=== PATIENT | female | born 1995 | race African-American/Black ===

== ENCOUNTER 2021-12-22 02:30 | Inpatient (IN) ==
[2021-12-22] MEDS: LACTATED RINGERS 1,000 ML IV SCH ×2 (03:00→16:00)
[2021-12-22] MEDS ORDERED: BUTORPHANOL 2 MG/ML VIAL IV PRN (03:15)
[2021-12-22] MEDS ORDERED: METHYLERGONOVINE 0.2 MG/1 ML AMP IM PRN (03:15)
[2021-12-22] MEDS ORDERED: miSOPROStoL 200 MCG TABLET RECTAL PRN (03:15)
[2021-12-22] MEDS ORDERED: TRANEXAMIC ACID 1,000 MG in SODIUM CHLORIDE 0.9% 100 ML IV PRN (03:15)
[2021-12-22] MEDS ORDERED: CARBOPROST TROMETHAMINE 250 MCG/ML AMP IM PRN (03:15)
[2021-12-22] MEDS ORDERED: OXYTOCIN/LR 20 UNIT/1,000 ML BAG IV SCH (03:30)
[2021-12-22] MEDS ORDERED: OXYTOCIN/LR 30 UNIT/1,000 ML BAG IV PRN (03:38)
[2021-12-22] MEDS ORDERED: AMPICILLIN INJ 2,000 MG in SODIUM CHLORIDE 0.9% 100 ML IV ONE ×2 (03:38→14:52)
[2021-12-22] MEDS ORDERED: ALUMINUM/MAGNES/SIMETH MAX STR 30 ML UDCUP PO PRN (04:20)
[2021-12-22 04:36] LABS: Basophils % 0.2 % (0.0-0.8); Eosinophils # 0.1 10*3/uL (0.0-0.87); Eosinophils % 0.5 % (0.00-10.9); Hematocrit 33.3 VOL% (35.7-47.0); Hemoglobin 10.8 GM/DL (12.0-16.0); Immature Granulocytes % 0.5 %; Immature Granulocytes Absolute 0.06 #; Lymphocytes % 16.1 % (21.3-54.2); Mean Corpuscular HGB Conc 32.4 GM/DL (32-36); Mean Corpuscular Volume 82.8 FL (87-102); Mean Platelet Volume 10.7 FL (9.6-12.0); Monocytes # 0.7 10*3/uL (0.11-0.8); Monocytes % 5.2 % (1.7-12.7); Neutrophils % 77.5 % (38.7-73.9); Platelet Count 182 T/CUMM (130-400); Red Blood Count 4.02 MC/CUMM (3.8-5.5); Red Cell Distribution Width 14.3 % (9.3-17.3); White Blood Count 12.5 T/CUMM (4-12)
[2021-12-22 04:54] LABS: Alanine Aminotransferase 17 U/L (13-56); Albumin 2.6 G/DL (3.4-5.0); Alkaline Phosphatase 104 U/L (45-117); Aspartate Amino Transferase 23 U/L (0-37); Bilirubin,Total < 0.39 MG/DL (0.20-1.00); Blood Urea Nitrogen 8 MG/DL (7-18); Calcium 9.5 MG/DL (8.5-10.1); Carbon Dioxide 22 MMOL/L (21-32); Chloride 108 MMOL/L (98-107); Estimated Glom Filtration Rate 180 ML/MIN; Glucose 84 MG/DL (74-106); Osmolality,Calculated 269.8 MOS/KG (273-304); Potassium 3.7 MMOL/L (3.5-5.1); Sodium 137 MMOL/L (136-145); Total Protein 7.1 G/DL (6.4-8.2)
[2021-12-22] MEDS ORDERED: BETAMETH SODIUM PHOS/ACETATE 30 MG/5 ML VIAL IM SCH (10:00)
[2021-12-22 11:35] LABS: HIV Antigen/Antibody Result Nonreactive (Nonreactive)
[2021-12-22] MEDS: AMPICILLIN INJ 1,000 MG in SODIUM CHLORIDE 0.9% 100 ML IV SCH ×2 (20:44→23:45)
[2021-12-22] MEDS: ONDANSETRON 4 MG/2 ML VIAL IV PRN (23:36)
[2021-12-22] MEDS: MEPERIDINE 50 MG/1 ML VIAL IV PRN (23:40)
[2021-12-23] MEDS: LACTATED RINGERS 1,000 ML IV SCH ×2 (01:24→07:16)
[2021-12-23] MEDS: AMPICILLIN INJ 1,000 MG in SODIUM CHLORIDE 0.9% 100 ML IV SCH ×4 (04:29→12:42)
[2021-12-23] MEDS ORDERED: BETAMETH SODIUM PHOS/ACETATE 30 MG/5 ML VIAL IM ONE (06:00)
[2021-12-23] MEDS ORDERED: OXYTOCIN/LR 20 UNIT/1,000 ML BAG IV SCH (09:00)
[2021-12-23] MEDS: ONDANSETRON 4 MG/2 ML VIAL IV PRN (12:32)
[2021-12-23] MEDS: MEPERIDINE 50 MG/1 ML VIAL IV PRN (12:36)
[2021-12-23] MEDS ORDERED: TRANEXAMIC ACID 1,000 MG/10 ML VIAL ONE (13:38)
[2021-12-23] MEDS ORDERED: miSOPROStoL 200 MCG TABLET ONE (13:38)
[2021-12-23] MEDS ORDERED: OXYTOCIN/LR 0 UNIT/0 ML BAG IV ONE (13:38)
[2021-12-23] MEDS ORDERED: SODIUM CHLORIDE 0.9% 0 ML IV ONE (13:38)
[2021-12-23] MEDS ORDERED: CARBOPROST TROMETHAMINE 250 MCG/ML AMP IM ONE (13:39)
[2021-12-23] MEDS ORDERED: METHYLERGONOVINE 0.2 MG/1 ML AMP ONE (13:39)
[2021-12-23] MEDS ORDERED: LIDOCAINE 1% 50 ML VIAL ONE (13:40)
[2021-12-23 14:59] LABS: Cord Venous Blood HCO3 21.2 MMOL/L; Cord Venous Blood PCO2 44.2 MMHG; Cord Venous Blood PO2 32.4 MMHG
[2021-12-23] MEDS ORDERED: HYDROCORTISONE 2.5% RECTAL CREAM 30 GM TUBE TOP PRN (18:15)
[2021-12-23] MEDS ORDERED: WITCH HAZEL PADS 100/JAR TOP PRN (18:15)
[2021-12-23] MEDS ORDERED: RHO(D) IMMUNE GLOBULIN 300 MCG SYRINGE IM ONE (18:15)
[2021-12-23] MEDS ORDERED: BISACODYL 10 MG SUPP RECTAL PRN (18:15)
[2021-12-23] MEDS ORDERED: DIPH/TET/ACEL PERT BOOSTER VACCINE 0.5 ML VIAL IM ONE (18:15)
[2021-12-23] MEDS ORDERED: BENZOCAINE 20%/MENTHOL 0.5% SPRAY 56 GM CAN TOP PRN (18:15)
[2021-12-23] MEDS ORDERED: OXYTOCIN/LR 20 UNIT/1,000 ML BAG IV ONE (18:15)
[2021-12-23] MEDS ORDERED: ACETAMINOPHEN 325 MG TABLET PO PRN (18:15)
[2021-12-23] MEDS ORDERED: LANOLIN 50% CREAM 0.3 OZ TUBE TOP PRN (18:15)
[2021-12-23] MEDS ORDERED: oxyCODONE/ACETAMINOPHEN 5-325 MG TABLET PO PRN (18:15)
[2021-12-23] MEDS ORDERED: MEASLES/MUMPS/RUBELLA VACCINE 0.5 ML VIAL SUBCUT ONE (18:15)
[2021-12-23] MEDS: oxyCODONE/ACETAMINOPHEN 5-325 MG TABLET PO PRN (21:27)
[2021-12-23] MEDS: DOCUSATE SODIUM 100 MG CAPSULE PO SCH (21:28)
[2021-12-24 06:00] LABS: Basophils % 0.1 % (0.0-0.8); Hematocrit 28.6 VOL% (35.7-47.0); Hemoglobin 9.3 GM/DL (12.0-16.0); Immature Granulocytes % 0.8 %; Immature Granulocytes Absolute 0.14 #; Lymphocytes # 1.9 10*3/uL (1.4-4.0); Lymphocytes % 11.7 % (21.3-54.2); Mean Corpuscular HGB Conc 32.5 GM/DL (32-36); Mean Corpuscular Volume 84.1 FL (87-102); Mean Platelet Volume 10.8 FL (9.6-12.0); Monocytes # 1.2 10*3/uL (0.11-0.8); Monocytes % 7.3 % (1.7-12.7); Neutrophils % 80.1 % (38.7-73.9); Platelet Count 182 T/CUMM (130-400); Red Cell Distribution Width 14.5 % (9.3-17.3); White Blood Count 16.6 T/CUMM (4-12)
[2021-12-24] MEDS: DOCUSATE SODIUM 100 MG CAPSULE PO SCH ×2 (09:03→20:23)
[2021-12-24] MEDS: MULTIVITAMIN (PRENATAL) TABLET PO SCH (09:03)
[2021-12-24] MEDS: oxyCODONE/ACETAMINOPHEN 5-325 MG TABLET PO PRN (09:03)
[2021-12-24] MEDS ORDERED: RHO(D) IMMUNE GLOBULIN 300 MCG SYRINGE IM ONE (15:45)
[2021-12-24] MEDS: FERROUS SULFATE 325 MG TABLET PO SCH (20:23)
[2021-12-24] MEDS: IBUPROFEN 800 MG TABLET PO PRN (20:23)
[2021-12-24] MEDS ORDERED: ACETAMINOPHEN/CODEINE 300-30 MG TABLET PO PRN (23:07)
[2021-12-24] MEDS: ACETAMINOPHEN/CODEINE 300-30 MG TABLET PO PRN (23:29)
[2021-12-25] MEDS ORDERED: ONDANSETRON 4 MG TABLET PO PRN (04:26)
[2021-12-25] MEDS: IBUPROFEN 800 MG TABLET PO PRN (05:11)
[2021-12-25] MEDS: ACETAMINOPHEN/CODEINE 300-30 MG TABLET PO PRN (05:12)
[2021-12-25] MEDS: MULTIVITAMIN (PRENATAL) TABLET PO SCH (09:23)
[2021-12-25] MEDS: FERROUS SULFATE 325 MG TABLET PO SCH (09:23)
[2021-12-25] MEDS: DOCUSATE SODIUM 100 MG CAPSULE PO SCH (09:23)
[2021-12-25 10:30] VITALS: BP 108/54
== END 2021-12-25 11:55 | disposition home or self-care (01) | DRG 560 ==
LOC: N.LD 02:30 → N.OB 12-24 14:15
PROVIDERS: ADMIT Obstetrics & Gynecology; ATTEND Obstetrics & Gynecology